=== PATIENT | female | born 1995 | race Caucasian/White ===

== ENCOUNTER → 2017-06-28 | Emergency (ER) | payer OTHER ==
[~2017-06-28] MED LIST: ACETAMINOPHEN 325 MG TABLET ONE; NA CHLORIDE 0.9% 1,000 ML ONE; POTASSIUM CL SA 10 MEQ TAB PO ONE; PROMETHAZINE 25 MG/ML VIAL ONE
[2017-06-28 21:16] LABS: Absolute Lymphocytes (CBC) 0.8 K/uL (0.7-4.9); Absolute Monocytes 0.5 K/uL (0.1-1.3); Absolute Neutrophil 5.8 K/uL (1.8-8.0); Basophils % 0.4 % (0-1.3); Hematocrit 32.9 % (36.0-45.0); Lymphocytes % 11.7 % (15.3-44.8); MCH 31.8 pg (27.0-35.0); MCV 89.6 fL (80-100); MPV 7.9 fL (7.6-11.3); Monocytes % 6.6 % (3.3-12.3); RBC Red Blood Cell Count 3.67 M/uL (3.86-4.86)
[2017-06-28 21:19] LABS: Urine Blood NEGATIVE (NEG); Urine Glucose NEGATIVE (NEG); Urine Protein 1+ (NEG); Urine Specific Gravity >1.030 (1.005-1.030)
[2017-06-28 21:27] LABS: BUN Blood Urea Nitrogen 7 mg/dL (6-20); Bicarbonate 23 mEq/L (21-31); Glucose Level 98 mg/dL (65-120); Potassium 3.2 mEq/L (3.6-5.0); Sodium Level 135 mEq/L (135-145)
--- NOTE | 2017-06-28 22:13 | ER ---
Nurse's Notes [facility] Name: Dilma Owens Age: 22 yrs Sex: Female : 1995 Arrival Date: 06/28/2017 Time: 20:12 Bed 4 Private MD: Diagnosis: Gastroenteritis;Dehydration Presentation: 06/28 20:18 Presenting complaint: Patient states: I have been having vomiting, diarrhea, and body la1 aches since yesterday and I cant hold anything down. Pt 15 weeks , Pt denies bleeding or discharge. Transition of care: patient was not received from another setting of care. Onset of symptoms was June 28, 2017. Initial Sepsis Screen: Does the patient meet any 2 criteria? No. Patient's initial sepsis screen is negative. Does the patient have a suspected source of infection? No. Patient's initial sepsis screen is negative. Care prior to arrival: None. 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 - Social history:: Smoking status: Patient/guardian denies using tobacco. Screenin:10 Abuse screen: Denies threats or abuse. Denies injuries from another. Nutritional mg2 screening: No deficits noted. Tuberculosis screening: No symptoms or risk factors identified. Fall Risk IV access (20 points). Assessment: 22:07 General: Appears in no apparent distress. comfortable, Behavior is calm, cooperative. mg2 Pain: Complains of pain in abdomen Pain does not radiate. Pain currently is 3 out of 10 on a pain scale. Quality of pain is described as aching, Is intermittent. Neuro: Level of Consciousness is awake, alert, obeys commands, Oriented to person, place, time. Cardiovascular: Capillary refill < 3 seconds Patient's skin is warm and dry. Respiratory: Airway is patent Respiratory effort is even, unlabored, Respiratory pattern is regular, symmetrical. GI: Reports lower abdominal pain, diarrhea, nausea, vomiting. EENT: No signs and/or symptoms were reported regarding the EENT system. Derm: Skin is intact, Skin is pink, warm \T\ dry. normal. Musculoskeletal: No signs and/or symptoms reported regarding the musculoskeletal system. Vital Signs: 20:19 BP 94 / 64; Pulse 84; Resp 19; Temp 98.4; Pulse Ox 100% on R/A; Weight 66.22 kg; Height la1 5 ft. 4 in. (162.56 cm) (R); 22:01 BP 92 / 64; Pulse 77; Resp 18; Pulse Ox 97% on R/A; mt 20:19 Body Mass Index 25.06 (66.22 kg, 162.56 cm) la1 ED Course: 20:12 Patient arrived in ED. am2 20:18 Triage completed. la1 20:19 Arm band placed on right wrist. la1 20:59 Jarred Shearer PA is PHCP. jr8 20:59 Tyree Durham MD is Attending Physician. jr8 21:12 Inserted saline lock: 22 gauge in right antecubital area, using aseptic technique. mt Blood collected. 21:18 Yaya Morocho, RN is Primary Nurse. mg2 22:25 Patient has correct armband on for positive identification. Placed in gown. Bed in low ak1 position. Call light in reach. Side rails up X 1. Pulse ox on. NIBP on. 22:25 No provider procedures requiring assistance completed. IV discontinued, intact, ak1 bleeding controlled, No redness/swelling at site. Pressure dressing applied. Administered Medications: 21:06 CANCELLED (Physician Discretion): Zofran 4 mg IVP once; over 2 minutes jr8 21:33 Drug: NS 0.9% 1000 ml Route: IV; Rate: 1000 ml; Site: right antecubital; mg2 22:25 Follow up: IV Status: Completed infusion ak1 21:33 Drug: Phenergan 12.5 mg Route: IVP; Site: right antecubital; mg2 22:25 Follow up: Response: No adverse reaction ak1 21:49 Drug: Tylenol 650 mg Route: PO; mg2 22:24 Follow up: Response: No adverse reaction ak1 21:49 Drug: Potassium Chloride 40 mEq Route: PO; mg2 22:24 Follow up: Response: No adverse reaction ak1 Outcome: 22:12 Discharge ordered by . jr8 22:26 Discharged to home ambulatory. ak1 22:26 Condition: stable 22:26 Discharge instructions given to patient, Instructed on discharge instructions, follow up and referral plans. no drinking with medication, no driving heavy equipment, medication usage, Demonstrated understanding of instructions, follow-up care, medications, Prescriptions given X 1. 22:30 Patient left the ED. ak1 Signatures: Jarred Shearer PA PA jr8 Carlos Duong RN RN la1 Frida Garzon RN RN ak1 Daylin Shin [facility] Yaya Morocho RN RN mg2 Corrections: (The following items were deleted from the chart) 22:11 22:07 GI: Reports lower abdominal pain, nausea, vomiting, mg2 mg2
--- NOTE | 2017-06-28 22:14 | EDPHYS ---
Physician Documentation [facility] Name: Dilma Owens Age: 22 yrs Sex: Female : 1995 Arrival Date: 06/28/2017 Time: 20:12 Bed 4 Private MD: ED Physician Tyree Durham HPI: 06/28 21:11 This 22 yrs old Female presents to ER via Ambulatory with complaints of jr8 Fever, Doesn't Feel Right, 15 wks preg/body aches. 21:11 The patient reports fever, not measured (subjective). Onset: The symptoms/episode jr8 began/occurred acutely, yesterday. Modifying factors: there are no obvious modifying factors. Associated signs and symptoms: Pertinent positives: nausea, runny nose, sore throat, vomiting. Severity of symptoms: At their worst the symptoms were moderate in the emergency department the symptoms are unchanged. The patient has not experienced similar symptoms in the past. The patient has not recently seen a physician. Patient stated that her son was diagnosed with viral infection the other day. That she is 15 weeks having runny nose, congestion, sore throat, along with n/v/d and fevers. Has not been able to keep fluids down . 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 - Social history:: Smoking status: Patient/guardian denies using tobacco. ROS: 21:11 Eyes: Negative for injury, pain, redness, and discharge, Neck: Negative for injury, jr8 pain, and swelling, Cardiovascular: Negative for chest pain, palpitations, and edema, Respiratory: Negative for shortness of breath, cough, wheezing, and pleuritic chest pain, Back: Negative for injury and pain, MS/Extremity: Negative for injury and deformity, Skin: Negative for injury, rash, and discoloration, Neuro: Negative for headache, weakness, numbness, tingling, and seizure. 21:11 Constitutional: Positive for body aches, chills, fever, malaise, poor PO intake. 21:11 ENT: Positive for rhinorrhea, sinus congestion, sore throat. 21:11 Abdomen/GI: Positive for nausea, vomiting, and diarrhea, Negative for abdominal pain, abdominal cramps, abdominal distension, anorexia, dysphagia, hematemesis, black/tarry stool, rectal pain, rectal bleeding, bowel incontinence, flatulence. Exam: 21:11 Eyes: Pupils equal round and reactive to light, extra-ocular motions intact. Lids and jr8 lashes normal. Conjunctiva and sclera are non-icteric and not injected. Cornea within normal limits. Periorbital areas with no swelling, redness, or edema. ENT: Nares patent. No nasal discharge, no septal abnormalities noted. Tympanic membranes are normal and external auditory canals are clear. Oropharynx with no redness, swelling, or masses, exudates, or evidence of obstruction, uvula midline. Mucous membranes moist. Neck: Trachea midline, no thyromegaly or masses palpated, and no cervical lymphadenopathy. Supple, full range of motion without nuchal rigidity, or vertebral point tenderness. No Meningismus. Cardiovascular: Regular rate and rhythm with a normal S1 and S2. No gallops, murmurs, or rubs. Normal PMI, no JVD. No pulse deficits. Respiratory: Lungs have equal breath sounds bilaterally, clear to auscultation and percussion. No rales, rhonchi or wheezes noted. No increased work of breathing, no retractions or nasal flaring. Abdomen/GI: Soft, non-tender, with normal bowel sounds. No distension or tympany. No guarding or rebound. No evidence of tenderness throughout. Back: No spinal tenderness. No costovertebral tenderness. Full range of motion. Skin: Warm, dry with normal turgor. Normal color with no rashes, no lesions, and no evidence of cellulitis. MS/ Extremity: Pulses equal, no cyanosis. Neurovascular intact. Full, normal range of motion. Neuro: Awake and alert, GCS 15, oriented to person, place, time, and situation. Cranial nerves II-XII grossly intact. Motor strength 5/5 in all extremities. Sensory grossly intact. Cerebellar exam normal. Normal gait. Vital Signs: 20:19 BP 94 / 64; Pulse 84; Resp 19; Temp 98.4; Pulse Ox 100% on R/A; Weight 66.22 kg; Height la1 5 ft. 4 in. (162.56 cm) (R); 22:01 BP 92 / 64; Pulse 77; Resp 18; Pulse Ox 97% on R/A; mt 20:19 Body Mass Index 25.06 (66.22 kg, 162.56 cm) [facility] MDM: 20:59 Patient medically screened. 8 22:12 Data reviewed: vital signs, nurses notes, lab test result(s), and as a result, I will jr8 discharge patient. Data interpreted: Pulse oximetry: on room air is 97 %. Interpretation: normal. Counseling: I had a detailed discussion with the patient and/or guardian regarding: the historical points, exam findings, and any diagnostic results supporting the discharge/admit diagnosis, lab results, the need for outpatient follow up, an OB/Gyne specialist, to return to the emergency department if symptoms worsen or persist or if there are any questions or concerns that arise at home. Response to treatment: the patient's symptoms have markedly improved after treatment, patient is well hydrated. 06/28 20:19 Order name: Strep; Complete Time: 20:59 [facility] 06/28 20:19 Order name: Flu; Complete Time: 20:59 [facility] 06/28 20:48 Order name: Urine Dipstick--Ancillary (enter results); Complete Time: 21:29 [facility] 06/28 20:48 Order name: Urine --Ancillary (enter results); Complete Time: 21:29 [facility] 06/28 20:52 Order name: Throat Culture [facility] 06/28 21:00 Order name: CBC with Diff; Complete Time: 21:29 [facility] 06/28 21:00 Order name: Basic Metabolic Panel; Complete Time: 21:29 [facility] 06/28 21:00 Order name: IV; Complete Time: 21:12 [facility] Administered Medications: 21:06 CANCELLED (Physician Discretion): Zofran 4 mg IVP once; over 2 minutes jr8 21:33 Drug: NS 0.9% 1000 ml Route: IV; Rate: 1000 ml; Site: right antecubital; mg2 22:25 Follow up: IV Status: Completed infusion ak1 21:33 Drug: Phenergan 12.5 mg Route: IVP; Site: right antecubital; mg2 22:25 Follow up: Response: No adverse reaction ak1 21:49 Drug: Tylenol 650 mg Route: PO; mg2 22:24 Follow up: Response: No adverse reaction ak1 21:49 Drug: Potassium Chloride 40 mEq Route: PO; mg2 22:24 Follow up: Response: No adverse reaction ak1 Disposition: 06/29 07:08 Co-signature as Attending Physician, Tyree Durham MD I agree with the assessment and jammie plan of care. Disposition: 06/28/17 22:12 Discharged to Home. Impression: Gastroenteritis, Dehydration. - Condition is Stable. - Discharge Instructions: Dehydration, Adult, Viral Gastroenteritis. - Prescriptions for promethazine 25 mg Rectal suppository - insert 1 suppository by RECTAL route every 6 hours; 8 suppository. - Medication Reconciliation Form, Thank You Letter, Antibiotic Education, Prescription Opioid Use form. - Follow up: Private Physician; When: 2 - 3 days; Reason: Recheck today's complaints, Continuance of care, Re-evaluation by your physician. - Problem is new. - Symptoms have improved. Signatures: Dispatcher [employer] EDLA Tyree Durham MD MD cha Roszak, Josh, PA PA jr8 Carlos Duong RN RN la1 Frida Garzon RN RN ak1 Yaya Morocho RN RN mg2 Corrections: (The following items were deleted from the chart) 06/28 21:06 21:00 Zofran 4 mg IVP once; over 2 minutes ordered. jr8 jr8 21:14 21:11 Patient stated that her son was diagnosed with viral infection the other day. jr8 That she is 15 weeks having runny nose, congestion, sore throat, along with n/v/d and fevers. jr8 22:30 22:12 06/28/2017 22:12 Discharged to Home. Impression: Gastroenteritis; Dehydration. ak1 Condition is Stable. Forms are Medication Reconciliation Form, Thank You Letter, Antibiotic Education, Prescription Opioid Use. Follow up: Private Physician; When: 2 - 3 days; Reason: Recheck today's complaints, Continuance of care, Re-evaluation by your physician. Problem is new. Symptoms have improved. jr8
[2017-06-28 23:02] VITALS: TEMP 98.4
[2017-06-28 23:03] VITALS: BP 92/64; O2SAT 97
== END ==
LOC: ER 20:07
DX: O99.612 Diseases of the digestive system complicating pregnancy, second trimester (principal); K92.9 Disease of digestive system, unspecified; Z3A.15 15 weeks gestation of pregnancy
CPT/HCPCS: 36415; 80048; 81003; 81025; 85025; 87070; 87081; 87804; 96361; 96374; 99284; J2550; J7030

== ENCOUNTER 2017-07-31 20:10 | Emergency (ER) | payer BC ==
--- OUTSIDE RECORDS SUMMARY | 2017-07-31 20:12 | XMS REPORT ---
:1995 Author Organization [employer] Care Team Providers Name Role Phone José Darnell Provider Role Unavailable Allergies, Adverse Reactions, Alerts Substance Reaction Event Type N.K.D.A. Info Not Available Non Drug Allergy Problems Problem Type Condition Code Onset Dates Condition Status Problem Encounter for supervision of other Z34.82 Active normal in second trimester Assessment Encounter for supervision of other Z34.80 Active normal , unspecified trimester Problem Encounter for supervision of other Z34.80 Active normal , unspecified trimester Assessment Encounter for supervision of Z34.91 Active low-risk in first trimester Assessment Encounter to determine O36.80X0 Active viability of , single or unspecified fetus Assessment Amenorrhea N91.2 Active Assessment Encounter for supervision of other Z34.82 Active normal in second trimester Medications No Known Medications Results No Known Results Summary Purpose [employer] Submission
--- OUTSIDE RECORDS SUMMARY | 2017-07-31 20:12 | XMS REPORT ---
:1995 Author Organization [employer] Care Team Providers Name Role Phone José Darnell Provider Role Unavailable Allergies No Known Allergies Problems Problem Type Condition Code Onset Dates Condition Status Problem Encounter for supervision of other Z34.80 Active normal , unspecified trimester Problem Encounter for supervision of other Z34.82 Active normal in second trimester Problem Abnormal MSAFP (maternal serum O28.0 Active alpha-fetoprotein), elevated Assessment Encounter for supervision of other Z34.80 Active normal , unspecified trimester Assessment Abnormal MSAFP (maternal serum O28.0 Active alpha-fetoprotein), elevated Medications No Known Medications Results No Known Results Summary Purpose [employer] Submission
[2017-07-31 22:01] LABS: Urine Bacteria 20-50 /HPF (<20); Urine RBC <5 /HPF (NONE SEEN)
[2017-07-31] MEDS ORDERED: LOPERAMIDE HCL 2 MG CAPSULE ONE (22:01)
[2017-07-31 22:02] LABS: Urine Blood NEGATIVE (NEG); Urine Glucose NEGATIVE (NEG); Urine Protein NEGATIVE (NEG); Urine Specific Gravity 1.025 (1.005-1.030)
[2017-07-31 22:02] LABS: Urine Amorphous Sediment 1+ /HPF (NONE SEEN); Urine Culture Reflex Order NOT NEEDED; Urine Mucus 1+ /HPF (NONE SEEN)
[2017-07-31] MEDS ORDERED: NA CHLORIDE 0.9% 1,000 ML ONE (22:02)
[2017-07-31] MEDS ORDERED: ONDANSETRON 4 MG/2 ML VIAL ONE (22:02)
[2017-07-31 22:08] LABS: Absolute Lymphocytes (CBC) 0.8 K/uL (0.7-4.9); Absolute Monocytes 0.6 K/uL (0.1-1.3); Absolute Neutrophil 8.1 K/uL (1.8-8.0); Basophils % 0.2 % (0-1.3); Eosinophils % 0.3 % (0-4.4); Hematocrit 34.3 % (36.0-45.0); Lymphocytes % 8.4 % (15.3-44.8); MCH 32.1 pg (27.0-35.0); MCV 90.8 fL (80-100); MPV 7.9 fL (7.6-11.3); Monocytes % 6.6 % (3.3-12.3); RBC Red Blood Cell Count 3.78 M/uL (3.86-4.86)
[2017-07-31 22:13] LABS: Bicarbonate 23 mEq/L (21-31); Glucose Level 101 mg/dL (65-120); Potassium 3.7 mEq/L (3.6-5.0); Sodium Level 137 mEq/L (135-145)
[2017-07-31 22:16] LABS: ALT/SGPT 15 IU/L (10-60); AST/SGOT 19 IU/L (10-42); Albumin 3.5 g/dL (3.2-5.5); Alkaline Phosphatase 54 IU/L (42-121); BUN Blood Urea Nitrogen 9 mg/dL (6-20); Bilirubin Total 0.3 mg/dL (0.3-1.2); Protein, Total 6.8 g/dL (6.0-8.3)
[2017-07-31] MEDS ORDERED: CEFTRIAXONE/SWI 1gm 1 GM/10 ML SYR ONE (22:19)
--- NOTE | 2017-07-31 22:59 | ER ---
Nurse's Notes [facility] Name: Dilma Owens Age: 22 yrs Sex: Female : 1995 Arrival Date: 07/31/2017 Time: 20:11 Bed 20 Private MD: Diagnosis: UTI in .;nausea/vomiting/diarrhea Presentation: 07/31 20:22 Presenting complaint: Patient states: 20 weeks . pt c/o abd cramps, back pain, ak1 Nausea with vomiting X2 and diarrhea X6 started at 1300. pt called L\T\D was instructed to come to ER to be seen first. Transition of care: patient was not received from another setting of care. Onset of symptoms was July 31, 2017. Risk Assessment: Do you want to hurt yourself or someone else? Patient reports no desire to harm self or others. Initial Sepsis Screen: Does the patient meet any 2 criteria? No. Patient's initial sepsis screen is negative. Does the patient have a suspected source of infection? No. Patient's initial sepsis screen is negative. Care prior to arrival: None. 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 - Social history:: Smoking status: Patient/guardian denies using tobacco. - Ebola Screening: : No symptoms or risks identified at this time. Screenin:27 Abuse screen: Denies threats or abuse. Nutritional screening: No deficits noted. jd3 Tuberculosis screening: No symptoms or risk factors identified. Fall Risk Ambulatory Aid- None/Bed Rest/Nurse Assist (0 pts). Gait- Normal/Bed Rest/Wheelchair (0 pts) Mental Status- Oriented to own ability (0 pts). Total De La Cruz Fall Scale indicates No Risk (0-24 pts). Assessment: 20:24 General: Appears uncomfortable, Behavior is cooperative, appropriate for age. Pain: jd3 Complains of pain in abdomen Pain radiates to back Pain currently is 7 out of 10 on a pain scale. Quality of pain is described as sharp, Is continuous, Also complains of nausea. Neuro: Level of Consciousness is awake, alert, obeys commands, Oriented to person, place, time, situation. Cardiovascular: Heart tones S1 S2 present Capillary refill < 3 seconds Patient's skin is warm and dry. Respiratory: Airway is patent Respiratory effort is even, unlabored, Respiratory pattern is regular, symmetrical, Breath sounds are clear bilaterally. GI: Abdomen is round Bowel sounds present X 4 quads. Abd is soft X 4 quads Abdomen is tender to palpation X 4 quads. Reports diarrhea, nausea, vomiting. : No signs and/or symptoms were reported regarding the genitourinary system. EENT: No signs and/or symptoms were reported regarding the EENT system. Derm: Skin is intact, Skin is dry, Skin is normal, Skin temperature is warm. Musculoskeletal: Circulation, motion, and sensation intact. Range of motion: intact in all extremities. 20:31 Reassessment: pt sent to L\T\D per ERP due to high risk . ak1 21:45 Reassessment: pt back from L\T\D. jd3 22:10 Reassessment: Patient appears in no apparent distress at this time. No changes from jd3 previously documented assessment. Patient and/or family updated on plan of care and expected duration. Pain level reassessed. Patient is alert, oriented x 3, equal unlabored respirations, skin warm/dry/pink. 23:09 Reassessment: Patient appears in no apparent distress at this time. Patient and/or jd3 family updated on plan of care and expected duration. Pain level reassessed. Patient is alert, oriented x 3, equal unlabored respirations, skin warm/dry/pink. pt reported understanding of discharge instructions, pt waiting on ride. Patient states feeling better. Vital Signs: 20:25 BP 113 / 69; Pulse 81; Resp 18; Temp 97.7(O); Pulse Ox 99% on R/A; Weight 68.04 kg (R); ak1 Height 5 ft. 4 in. (162.56 cm) (R); Pain 7/10; 22:07 BP 98 / 55; Pulse 78; Resp 18 S; Pulse Ox 97% on R/A; jd3 23:10 BP 91 / 56; Pulse 78; Resp 17 S; Pulse Ox 98% on R/A; Pain 5/10; jd3 20:25 Body Mass Index 25.75 (68.04 kg, 162.56 cm) ak1 ED Course: 20:11 Patient arrived in ED. am2 20:16 Ron Garces, GLYNN is Primary Nurse. jd3 20:20 Tyree Angulo PA is PHCP. cp 20:20 Pedro Monaco MD is Attending Physician. cp 20:24 Triage completed. ak1 20:25 Arm band placed on Patient placed in an exam room, on a stretcher, on pulse oximetry, ak1 Patient notified of wait time. 20:26 Urine collected: clean catch specimen. ak1 20:27 Patient has correct armband on for positive identification. Bed in low position. Call jd3 light in reach. Side rails up X 1. 21:55 Inserted saline lock: 20 gauge in right antecubital area, using aseptic technique. jd3 Blood collected. 22:58 Roseanna Darnell MD is Referral Physician. ps1 23:10 No provider procedures requiring assistance completed. IV discontinued, intact, jd3 bleeding controlled, No redness/swelling at site. Pressure dressing applied. Administered Medications: 22:05 Drug: Zofran 4 mg Route: IVP; Site: right antecubital; jd3 23:13 Follow up: Response: No adverse reaction jd3 22:05 Drug: Loperamide 2 mg Route: PO; jd3 23:13 Follow up: Response: No adverse reaction jd3 22:06 Drug: NS 0.9% 1000 ml Route: IV; Rate: 1 bolus; Site: right antecubital; jd3 23:13 Follow up: Response: No adverse reaction; IV Status: Completed infusion; IV Intake: jd3 1000ml 22:21 Drug: Rocephin - (cefTRIAXone) 1 grams Route: IVPB; Infused Over: 30 mins; Site: right jd3 antecubital; 23:12 Follow up: Response: No adverse reaction; IV Status: Completed infusion jd3 Intake: 23:13 IV: 1000ml; Total: 1000ml. jd3 Outcome: 22:59 Discharge ordered by . ps1 23:10 Discharged to home ambulatory, with family. jd3 23:10 Condition: stable 23:10 Discharge instructions given to patient, Instructed on discharge instructions, follow up and referral plans. medication usage, Demonstrated understanding of instructions, follow-up care, medications, Prescriptions given X 2. 23:18 Patient left the ED. jd3 Signatures: Frida Garzon, RN RN ak1 Tyree Angulo PA PA cp Moreno, Amanda am2 Davies, Jonathon, RN RN jd3 Pedro Monaco MD MD ps1
--- NOTE | 2017-07-31 22:59 | EDPHYS ---
Physician Documentation [facility] Name: Dilma Owens Age: 22 yrs Sex: Female : 1995 Arrival Date: 07/31/2017 Time: 20:11 Bed 20 Private MD: ED Physician Pedro Monaco HPI: 07/31 20:32 This 22 yrs old Female presents to ER via Ambulatory with complaints of ps1 Abdominal Cramping, Vomiting/Diarrhea. 20:32 The patient presents to the emergency department with abdominal pain, of the right ps1 lower quadrant and left lower quadrant, that started today, described as crampy, dull, nausea and vomiting, that started 2 day(s) ago, NO VB, LOF, CTX, LOM. The estimated gestational age is 20 weeks. pt is high risk patient. Hx of "blood clot and elevated AFP" sees MFM for abnormal gestation. Presenting with lower abd pain and NV. Pt screened and sent to L\\T\\D for rule out of gestational complications of per protocol. . 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 - Social history:: Smoking status: Patient/guardian denies using tobacco. - Ebola Screening: : No symptoms or risks identified at this time. ROS: 20:32 Constitutional: Negative for fever, chills, and weight loss, Eyes: Negative for injury, ps1 pain, redness, and discharge, ENT: Negative for injury, pain, and discharge, Cardiovascular: Negative for chest pain, palpitations, and edema, Respiratory: Negative for shortness of breath, cough, wheezing, and pleuritic chest pain, MS/Extremity: Negative for injury and deformity, Skin: Negative for injury, rash, and discoloration, Neuro: Negative for headache, weakness, numbness, tingling, and seizure. 20:32 Abdomen/GI: Positive for abdominal pain, nausea, vomiting, and diarrhea. 20:32 : Negative for urinary symptoms. Exam: 20:32 Constitutional: This is a well developed, well nourished patient who is awake, alert, ps1 and in no acute distress. Head/Face: Normocephalic, atraumatic. Eyes: Pupils equal round and reactive to light, extra-ocular motions intact. Lids and lashes normal. Conjunctiva and sclera are non-icteric and not injected. Chest/axilla: Normal chest wall appearance and motion. Nontender with no deformity. No lesions are appreciated. Cardiovascular: Regular rate and rhythm. No gallops, murmurs, or rubs. Normal PMI, no JVD. No pulse deficits. Respiratory: Lungs have equal breath sounds bilaterally, clear to auscultation and percussion. No rales, rhonchi or wheezes noted. No increased work of breathing, no retractions or nasal flaring. Skin: Warm, dry with normal turgor. Normal color with no rashes, no lesions, and no evidence of cellulitis. MS/ Extremity: Pulses equal, no cyanosis. Neurovascular intact. Full, normal range of motion. Neuro: Awake and alert, GCS 15, oriented to person, place, time, and situation. Cranial nerves II-XII grossly intact. Sensory grossly intact. Psych: Awake, alert, with orientation to person, place and time. Behavior, mood, and affect are within normal limits. 20:32 Abdomen/GI: Inspection: gravid appearance, Bowel sounds: normal, Palpation: abdomen is soft and non-tender. Vital Signs: 20:25 BP 113 / 69; Pulse 81; Resp 18; Temp 97.7(O); Pulse Ox 99% on R/A; Weight 68.04 kg (R); ak1 Height 5 ft. 4 in. (162.56 cm) (R); Pain 7/10; 22:07 BP 98 / 55; Pulse 78; Resp 18 S; Pulse Ox 97% on R/A; jd3 23:10 BP 91 / 56; Pulse 78; Resp 17 S; Pulse Ox 98% on R/A; Pain 5/10; jd3 20:25 Body Mass Index 25.75 (68.04 kg, 162.56 cm) ak1 MDM: 20:23 Patient medically screened. [facility] 23:00 Data reviewed: vital signs, nurses notes, lab test result(s). ED course: Patient has ps1 urinary tract infection. Rocephin given. Will discharge with keflex and zofran. Pt seen and evaluated for pregancy complaints in L\\T\\D. Pt to follow up with OB for recheck. Cultures pending. . 07/31 20:34 Order name: Urine Dipstick--Ancillary (enter results); Complete Time: 22:05 [facility] 07/31 20:34 Order name: Urine --Ancillary (enter results); Complete Time: 22:05 [facility] 07/31 21:39 Order name: Urine Culture [facility] 07/31 21:39 Order name: Urine Microscopic Only; Complete Time: 22:05 [facility] 07/31 21:44 Order name: CBC with Diff; Complete Time: 22:18 [facility] 07/31 21:44 Order name: CMP; Complete Time: 22:18 [facility] 07/31 21:58 Order name: IV; Complete Time: 21:58 ak1 Administered Medications: 22:05 Drug: Zofran 4 mg Route: IVP; Site: right antecubital; jd3 23:13 Follow up: Response: No adverse reaction jd3 22:05 Drug: Loperamide 2 mg Route: PO; jd3 23:13 Follow up: Response: No adverse reaction jd3 22:06 Drug: NS 0.9% 1000 ml Route: IV; Rate: 1 bolus; Site: right antecubital; jd3 23:13 Follow up: Response: No adverse reaction; IV Status: Completed infusion; IV Intake: jd3 1000ml 22:21 Drug: Rocephin - (cefTRIAXone) 1 grams Route: IVPB; Infused Over: 30 mins; Site: right jd3 antecubital; 23:12 Follow up: Response: No adverse reaction; IV Status: Completed infusion jd3 Disposition: 07/31/17 22:59 Discharged to Home. Impression: UTI in ., nausea/vomiting/diarrhea. - Condition is Stable. - Discharge Instructions: and Urinary Tract Infection. - Prescriptions for Keflex 500 mg Oral Capsule - take 1 capsule by ORAL route every 8 hours for 10 days; 30 capsule. Zofran 4 mg Oral Tablet - take 1 tablet by ORAL route every 12 hours As needed; 20 tablet. - Medication Reconciliation Form, Thank You Letter, Antibiotic Education, Prescription Opioid Use form. - Follow up: Rekhi, Mini, MD; When: As needed; Reason: Recheck today's complaints, Continuance of care, Re-evaluation by your physician. Follow up: Emergency Department; When: As needed; Reason: Fever > 102 F, Worsening of condition. - Problem is new. - Symptoms have improved. Signatures: Dispatcher [employer] EDTyree Black MD MD cha Krenek, Amber, RN RN ak1 Ron Garces RN RN jd3 Pedro Monaco MD MD ps1 Corrections: (The following items were deleted from the chart) 23:18 22:59 07/31/2017 22:59 Discharged to Home. Impression: UTI in .; jd3 nausea/vomiting/diarrhea. Condition is Stable. Forms are Medication Reconciliation Form, Thank You Letter, Antibiotic Education, Prescription Opioid Use. Follow up: Roseanna Darnell; When: As needed; Reason: Recheck today's complaints, Continuance of care, Re-evaluation by your physician. Follow up: Emergency Department; When: As needed; Reason: Fever > 102 F, Worsening of condition. Problem is new. Symptoms have improved. ps1
[2017-08-01 00:36] VITALS: TEMP 97.7
[2017-08-01 00:39] VITALS: BP 91/56; O2SAT 98
== END 2017-07-31 23:18 | disposition home or self-care (01) ==
LOC: ER 20:10
DX: O23.42 Unspecified infection of urinary tract in pregnancy, second trimester (principal); R11.10 Vomiting, unspecified; R19.7 Diarrhea, unspecified; Z3A.20 20 weeks gestation of pregnancy
CPT/HCPCS: 36415; 80053; 81003; 81015; 81025; 85025; 87086; 87088; 96361; 96365; 96375; 99284; J0696; J2405; J7030

== ENCOUNTER 2017-12-07 18:08 | Inpatient (IN) | payer BC, OTHER ==
--- OUTSIDE RECORDS SUMMARY | 2017-12-07 18:11 | XMS REPORT ---
:1995 Author Organization [employer] Care Team Providers Name Role Phone José aDrnell Provider Role Unavailable Allergies No Known Allergies Problems Problem Type Condition Code Onset Dates Condition Status Assessment Encounter for supervision of other Z34.83 Active normal in third trimester Assessment Abnormal MSAFP (maternal serum O28.0 Active alpha-fetoprotein), elevated Problem Abnormal MSAFP (maternal serum O28.0 Active alpha-fetoprotein), elevated Problem Urinary tract infection in mother O23.42 Active during second trimester of Problem Encounter for supervision of other Z34.83 Active normal in third trimester Assessment Need for Tdap vaccination Z23 Active Problem Encounter for supervision of other Z34.80 Active normal , unspecified trimester Problem Encounter for supervision of other Z34.82 Active normal in second trimester Medications Medication Code System Code Instructions Start End Date Status Dosage Date Macrobid NDC 58437596966 100 MG Orally September 06, Jan 14, Active 1 capsule daily 2017 2017 with food atarax NDC 0 25mg Po daily as Nov 15, Nov 20, Active 1 needed 2017 2017 Results No Known Results Immunizations Vaccine Administration Date TDAP > 7 Years-Adacel Nov 15, 2017 Summary Purpose [employer]ClinicalWorks Submission
--- OUTSIDE RECORDS SUMMARY | 2017-12-07 18:11 | XMS REPORT ---
:1995 Author Organization [employer] Care Team Providers Name Role Phone José Darnell Provider Role Unavailable Allergies No Known Allergies Problems Problem Type Condition Code Onset Dates Condition Status Assessment Urinary tract infection in mother O23.42 Active during second trimester of Problem Urinary tract infection in mother O23.42 Active during second trimester of Problem Encounter for supervision of other Z34.80 Active normal , unspecified trimester Problem Abnormal MSAFP (maternal serum O28.0 Active alpha-fetoprotein), elevated Assessment Encounter for supervision of other Z34.82 Active normal in second trimester Assessment Abnormal MSAFP (maternal serum O28.0 Active alpha-fetoprotein), elevated Problem Encounter for supervision of other Z34.82 Active normal in second trimester Medications Medication Code System Code Instructions Start End Date Status Dosage Date Macrobid [facility] 37488755033 100 MG Orally Active 1 capsule every 12 hrs with food Results No Known Results Summary Purpose [employer]Clinical[employer] Submission
--- OUTSIDE RECORDS SUMMARY | 2017-12-07 18:11 | XMS REPORT ---
:1995 Author Organization [employer] Care Team Providers Name Role Phone José Darnell Provider Role Unavailable Allergies No Known Allergies Problems Problem Type Condition Code Onset Dates Condition Status Problem Encounter for supervision of other Z34.83 Active normal in third trimester Problem Abnormal MSAFP (maternal serum O28.0 Active alpha-fetoprotein), elevated Problem Needs flu shot Z23 Active Problem Encounter for supervision of other Z34.80 Active normal , unspecified trimester Problem Urinary tract infection in mother O23.42 Active during second trimester of Problem Encounter for supervision of other Z34.82 Active normal in second trimester Medications No Known Medications Results No Known Results Summary Purpose [employer]ClinicalWorks Submission
--- OUTSIDE RECORDS SUMMARY | 2017-12-07 18:11 | XMS REPORT ---
:1995 Author Organization [employer] Care Team Providers Name Role Phone José Darnell Provider Role Unavailable Allergies, Adverse Reactions, Alerts Substance Reaction Event Type N.K.D.A. Info Not Available Non Drug Allergy Problems Problem Type Condition Code Onset Dates Condition Status Assessment Abnormal MSAFP (maternal serum O28.0 Active alpha-fetoprotein), elevated Assessment Urinary tract infection in mother O23.42 Active during second trimester of Problem Abnormal MSAFP (maternal serum O28.0 Active alpha-fetoprotein), elevated Problem Urinary tract infection in mother O23.42 Active during second trimester of Problem Encounter for supervision of other Z34.83 Active normal in third trimester Assessment Encounter for supervision of other Z34.83 Active normal in third trimester Problem Encounter for supervision of other Z34.80 Active normal , unspecified trimester Problem Encounter for supervision of other Z34.82 Active normal in second trimester Medications Medication Code Code Instructions Start End Date Status Dosage System Date Macrobid [facility] 67022967356 100 MG Orally September 06, Apr 04, Active 1 capsule daily 2017 2018 with food Macrobid ND 81331841137 100 MG Orally Oct 18, Inactive 1 capsule every 12 hrs 2017 with food Results No Known Results Summary Purpose [employer] Submission
--- OUTSIDE RECORDS SUMMARY | 2017-12-07 18:11 | XMS REPORT ---
:1995 Author Organization [employer] Care Team Providers Name Role Phone José Darnell Provider Role Unavailable Allergies No Known Allergies Problems Problem Type Condition Code Onset Dates Condition Status Problem Urinary tract infection in mother O23.42 Active during second trimester of Problem Encounter for supervision of other Z34.80 Active normal , unspecified trimester Problem Abnormal MSAFP (maternal serum O28.0 Active alpha-fetoprotein), elevated Assessment Abnormal MSAFP (maternal serum O28.0 Active alpha-fetoprotein), elevated Assessment Urinary tract infection in mother O23.42 Active during second trimester of Problem Encounter for supervision of other Z34.82 Active normal in second trimester Assessment Encounter for supervision of other Z34.82 Active normal in second trimester Medications Medication Code System Code Instructions Start End Date Status Dosage Date Macrobid [facility] 61561872764 100 MG Orally Active 1 capsule every 12 hrs with food Results No Known Results Summary Purpose [employer] Submission
--- OUTSIDE RECORDS SUMMARY | 2017-12-07 18:11 | XMS REPORT ---
:1995 Author Organization [employer] Care Team Providers Name Role Phone José Darnell Provider Role Unavailable Allergies No Known Allergies Problems Problem Type Condition Code Onset Dates Condition Status Problem Abnormal MSAFP (maternal serum O28.0 Active [...]
--- OUTSIDE RECORDS SUMMARY | 2017-12-07 18:11 | XMS REPORT ---
[...] Start End Date Status Dosage Date Macrobid [facility] 57185316610 100 MG Orally Active 1 capsule every 12 hrs with food Macrobid ND 98050118275 100 MG Orally September 06, Apr 04, Active 1 capsule daily 2017 2018 with food Results No Known Results Summary Purpose [employer]ClinicalWorks Submission
--- OUTSIDE RECORDS SUMMARY | 2017-12-07 18:11 | XMS REPORT ---
:1995 Author Organization [employer] Care Team Providers Name Role Phone José [...] Medications Results No Known Results Summary Purpose [employer] Submission
--- OUTSIDE RECORDS SUMMARY | 2017-12-07 18:11 | XMS REPORT ---
[...] Start End Date Status Dosage Date Macrobid [facility] 36118242083 100 MG Orally September 06, Dec 16, Active 1 capsule daily 2017 2017 with food Results No Known Results Summary Purpose [employer] Submission
--- OUTSIDE RECORDS SUMMARY | 2017-12-07 18:11 | XMS REPORT ---
[...] End Date Status Dosage Date Macrobid [facility] 54642962642 100 MG Orally September 06, Apr 04, Active 1 capsule daily 2017 2018 with food Results No Known Results Summary Purpose [employer]Clinical[employer] Submission
--- OUTSIDE RECORDS SUMMARY | 2017-12-07 18:11 | XMS REPORT ---
:1995 Author Organization [employer] Care Team Providers Name Role Phone José Darnell Provider Role Unavailable Allergies No Known Allergies Problems Problem Type Condition Code Onset Dates Condition Status Assessment Needs flu shot Z23 Active Assessment Encounter for supervision of other Z34.83 Active normal in third trimester Assessment Abnormal MSAFP (maternal serum O28.0 Active alpha-fetoprotein), elevated Problem Encounter for supervision of other Z34.83 [...] End Date Status Dosage System Date Macrobid NDC 91078801801 100 MG Orally September 06, Dec 16, Active 1 capsule daily 2017 2017 with food flu vaccine NDC 0 subcutaneous Nov 22, Nov 22, Active not defined 2017 2017 Results No Known Results Immunizations Vaccine Administration Date Afluria Nov 22, 2017 Summary Purpose [employer]ClinicalWorks Submission
--- OUTSIDE RECORDS SUMMARY | 2017-12-07 18:11 | XMS REPORT ---
:1995 Author Organization [employer] Care Team Providers Name Role Phone José [...] Medications Results No Known Results Summary Purpose [employer] Submission
--- OUTSIDE RECORDS SUMMARY | 2017-12-07 18:11 | XMS REPORT ---
[...] Start End Date Status Dosage Date Macrobid [facility] 78421627721 100 MG Orally September 06, Apr 04, Active 1 capsule daily 2017 2018 with food Results No Known Results Summary Purpose [employer] Submission
[2017-12-07] MEDS ORDERED: Ringers Lactate 1,000 ML IV PRN (18:38)
[2017-12-07] MEDS ORDERED: METHYLERGONOVINE 0.2MG/ML AMP IM PRN (18:38)
[2017-12-07] MEDS ORDERED: PROMETHAZINE 25 MG/ML VIAL IV PRN ×2 (18:38)
[2017-12-07] MEDS ORDERED: BUTORPHANOL 1 MG/ML INJ IV PRN (18:38)
[2017-12-07] MEDS ORDERED: Ringers Lactate 1,000 ML IV SCH (19:00)
[2017-12-07 19:08] LABS: RPR Titer ND
[2017-12-07 19:10] LABS: Absolute Lymphocytes (CBC) 1.2 K/uL (0.7-4.9); Absolute Monocytes 0.9 K/uL (0.1-1.3); Absolute Neutrophil 5.8 K/uL (1.8-8.0); Basophils % 0.3 % (0-1.3); Eosinophils % 0.2 % (0-4.4); Hematocrit 31.1 % (36.0-45.0); Lymphocytes % 14.6 % (15.3-44.8); MCH 32.1 pg (27.0-35.0); MPV 7.8 fL (7.6-11.3); Monocytes % 11.2 % (3.3-12.3); RBC Red Blood Cell Count 3.38 M/uL (3.86-4.86)
[2017-12-07 19:13] LABS: Urine Appearance CLEAR; Urine Blood NEGATIVE (NEG); Urine Color DK YELLOW; Urine Glucose NEGATIVE (NEG); Urine Protein 1+ (NEG); Urine Specific Gravity >=1.030 (1.005-1.030); Urine pH 6.5 (5.0-7.0)
[2017-12-07 19:18] LABS: Urine Bilirubin 1+ (NEG)
[2017-12-07 19:19] LABS: Urine Microscopic Reflex ORDER UMIC
[2017-12-07 19:39] LABS: Urine Bacteria 20-50 /HPF (<20); Urine RBC <5 /HPF (NONE SEEN)
[2017-12-07] MEDS ORDERED: ROPIVACAINE HCL 100 ML IV PRN (19:46)
[2017-12-07] MEDS ORDERED: FENTANYL CITR 100 MCG/2 ML IV ONE (19:47)
[2017-12-07] MEDS ORDERED: ROPIVACAINE HCL 2 MG/ML 100ML IV ONE (19:47)
[2017-12-07] MEDS ORDERED: CARBOPROST TROME 250 MCG/ML IM ONE (19:48)
[2017-12-07] MEDS ORDERED: ROPIVACAINE HCL 20 ML ONE (19:58)
[2017-12-07] MEDS ORDERED: DIPHENHYDRAMINE 25 MG TAB/CAP ONE (20:23)
[2017-12-07] MEDS ORDERED: OXYTOCIN/LR 20 UNIT/1,000 ML BAG IV ONE (20:47)
[2017-12-07 20:56] LABS: RPR (Rapid Plasma Reagin) NON-REACT (NON-REACT)
[2017-12-07] MEDS ORDERED: OXYTOCIN/LR 20 UNIT/1,000 ML BAG IV SCH (22:00)
[2017-12-07 22:32] VITALS: BMI 31.4
[2017-12-08] MEDS ORDERED: ACETAMINOPHEN 500 MG TAB PO PRN (00:56)
[2017-12-08] MEDS ORDERED: ONDANSETRON 4 MG (ODT) TAB PO PRN (00:56)
[2017-12-08] MEDS ORDERED: DOCUSATE NA/SENNA CONC 1 TAB PO PRN (00:56)
[2017-12-08] MEDS ORDERED: METHYLERGONOVINE 0.2 MG TAB PO PRN (00:56)
[2017-12-08] MEDS ORDERED: BISACODYL 10 MG RECTAL SUPP RECT PRN (00:56)
--- NOTE | 2017-12-08 00:59 | P.OP ---
Date of Service: 12/08/17 Findings and Operative Technique Patient delivered a viable female in cephalic presentation on 12/08/17 at 00:33. Delivery was performed over a midline episiotomy. APGARS: 9/10 [facility] 8lb 9 oz
[2017-12-08] MEDS: Oxycodone HCl/Acetaminophen 1 TAB TAB PO PRN ×3 (01:55→13:09)
[2017-12-08] MEDS: IBUPROFEN 200 MG TAB PO PRN ×2 (12:25→21:57)
[2017-12-08 17:48] LABS: Absolute Lymphocytes (CBC) 1.4 K/uL (0.7-4.9); Absolute Monocytes 0.8 K/uL (0.1-1.3); Absolute Neutrophil 4.9 K/uL (1.8-8.0); Basophils % 0.3 % (0-1.3); Eosinophils % 0.6 % (0-4.4); Hematocrit 32.3 % (36.0-45.0); MCH 32.1 pg (27.0-35.0); MCV 91.6 fL (80-100); MPV 8.2 fL (7.6-11.3); RBC Red Blood Cell Count 3.53 M/uL (3.86-4.86)
[2017-12-09] MEDS ORDERED: BETAMET ACET/BETAMET NA PH 6 MG/ML VIAL IM ONE (02:51)
[2017-12-09] MEDS ORDERED: PENICILLIN G POT 0 MU/0 ML BAG IV ONE (02:51)
[2017-12-09] MEDS ORDERED: OXYTOCIN/LR 0 UNIT/0 ML BAG IV ONE (03:02)
[2017-12-09] MEDS ORDERED: METHYLERGONOVINE 0.2MG/ML AMP IM ONE (03:02)
[2017-12-09] MEDS ORDERED: CARBOPROST TROME 250 MCG/ML IM ONE (03:02)
--- NOTE | 2017-12-09 06:26 | DS ---
Hospital Course: This is a 22-year-old patient of Dr. Darnell's. Apparently, followed antepartum with out complications. Delivered this morning, a little bit after midnight. The patient is Rh positive, immune to Rubella. Negative strep screen. Had epidural anesthesia, midline episiotomy. No mention of excessive blood loss. Mother and baby are doing quite well. The patient will be dismissed tomor row morning to call Dr. Darnell's office today to make an appointment for approximately 6 weeks; to rep ort any temperature elevation of 100 degrees or greater, severe pain, heavy bleeding, or any other ty pe of abnormalities. We will give the patient a prescription for either tramadol or Motrin depending upon her preference. No post epidural problems noted at this point. She has had her Tdap and flu s hots. Final Diagnoses: 1.Term intrauterine . 2.Vaginal delivery. 3.Epidural anesthesia. ANTONIA/ZELDA Voice ID: [id number] Report ID: [id number]
[2017-12-09] MEDS: IBUPROFEN 200 MG TAB PO PRN (07:58)
[2017-12-09 08:44] VITALS: BP 114/67; TEMP 97.5
[2017-12-10 18:01] LABS: HBsAG Nonreactive (Nonreactive)
== END 2017-12-09 09:30 | disposition home or self-care (01) | DRG 807 ==
LOC: L&D 18:08 → 2ND-WC 18:44
PROVIDERS: ADMIT Student in an Organized Health Care Education/Training Program; ATTEND Student in an Organized Health Care Education/Training Program
PROC: 10E0XZZ Delivery of Products of Conception, External Approach (ICD-10-PCS; principal; 2017-12-07)
PROC: 0W8NXZZ Division of Female Perineum, External Approach (ICD-10-PCS; 2017-12-07)
DX: O80 Encounter for full-term uncomplicated delivery (principal); Z37.0 Single live birth; Z3A.38 38 weeks gestation of pregnancy
CPT/HCPCS: 36415; 81003; 81015; 85025; 86592; 86901; 87340; J2210; J2590; J2795; J3010